=== PATIENT | female | born 1960 | race Caucasian/White ===

== ENCOUNTER 2016-09-22 09:46 | Emergency (ER) | payer MEDICAID ==
[~2016-09-22] VITALS: Ht 152.4 cm; Wt 68.0 kg
[2016-09-22 09:46] VITALS: BP 135/90; PULSE 78; RESP 19; TEMP 98.1; O2SAT 98
[2016-09-22] MEDS ORDERED: OXYCODONE/ACETAMINOPHEN 5-325 TABLET PO ONE (10:15)
[2016-09-22] MEDS ORDERED: LIDOCAINE/PRILOCAINE 5 GM CREAM (EMLA) TP ONE (10:45)
[2016-09-22 11:25] VITALS: BP 128/72; PULSE 88; RESP 20; TEMP 97.9; O2SAT 100
== END 2016-09-22 11:25 | disposition home or self-care (01) ==
LOC: SED 09:46
DX: M25.511 Pain in right shoulder (principal); G89.29 Other chronic pain; J45.909 Unspecified asthma, uncomplicated; Z88.0 Allergy status to penicillin; Z88.2 Allergy status to sulfonamides; Z98.890 Other specified postprocedural states
CPT/HCPCS: 73030; 99284

== ENCOUNTER 2017-02-21 19:03 | Emergency (ER) | payer MEDICAID ==
[~2017-02-21] VITALS: Ht 152.4 cm; Wt 70.8 kg
[2017-02-21 19:18] VITALS: BP_SYST 123
--- NOTE | 2017-02-21 19:23 | NUR ---
Pt placed to ER bed 04 and pt report received from MARIBEL Marrufo. Pt states that she tripped off of the side of a side walk, landing into bushes. Pt c/o pain to Right shoulder, Right elbow, RFA and Right wrist. Pt also c/o pain to Right hip. Pt ambulatory with steady gait. - LOC, - head trauma.
--- NOTE | 2017-02-21 19:35 | NUR ---
Dr. Molina at bedside to assess pt.
[2017-02-21] MEDS ORDERED: KETOROLAC TROMETHAMINE 60 MG/2 ML VIAL IM ONE (20:15)
[2017-02-21] MEDS ORDERED: HYDROcodone/ACETAMIN 10-325 MG TAB PO ONE (20:15)
--- NOTE | 2017-02-21 20:21 | NUR ---
Pt up to restroom, ambulates with steady gait. Urine sample collected and sent to lab.
--- NOTE | 2017-02-21 21:50 | NUR ---
Pt verbalizes improvement in pain s/p medication. Warm blanket and ice packs provided.
--- NOTE | 2017-02-21 23:00 | NUR ---
Right Velcro wrist splint applied. Non constrictive, cap refil <2 sec to nail beds. Arm immobilizer placed.
[2017-02-21 23:04] VITALS: BP_SYST 120
--- NOTE | 2017-02-21 23:04 | NUR ---
Patient given written and verbal discharge instructions and verbalizes understanding. ER MD discussed with patient the results and treatment provided. Patient in stable condition. ID arm band removed. Rx of [place] and Motrin given. Patient educated on pain management and to follow up with PMD. Pain Scale 2/10. Opportunity for questions provided and answered.
== END 2017-02-21 23:04 | disposition home or self-care (01) ==
LOC: SED 19:03
DX: S63.501A Unspecified sprain of right wrist, initial encounter (principal); Z88.0 Allergy status to penicillin; Z88.2 Allergy status to sulfonamides; W17.89XA Other fall from one level to another, initial encounter; Y93.89 Activity, other specified; Y92.89 Other specified places as the place of occurrence of the external cause; Y99.8 Other external cause status
CPT/HCPCS: 29125; 73060; 73090; 73110; 73502; 96372; 99284; J1885